=== PATIENT | male | born 1975 | race Caucasian/White ===

== ENCOUNTER 2017-10-12 14:31 | Inpatient (IN) | payer OTHER ==
[2017-10-12 18:23] VITALS: BMI 38.4
--- NOTE | 2017-10-12 20:40 | HP ---
CIWA Score - CIWA Score Nausea/Vomitin Muscle Tremors: None Anxiety: 2 Agitation: 1-Slight > Activity Paroxysmal Sweats: No Perspiration Orientation: 1-Uncertain about Date Tacttile Disturbances: 2-Mild Itch/Numbness/Burn (right hand) Auditory Disturbances: 0-None Visual Disturbances: 2-Mild Sensitivity Headache: 3-Moderate CIWA-Ar Total Score: 13 Admission ROS BHS - HPI Chief Complaint: Benzo withdrawal symptoms Allergies/Adverse Reactions: Allergies Allergy/AdvReac Type Severity Reaction Status Date / Time turkey Allergy Severe Vomiting Verified 10/12/17 18:52 History of Present Illness: 41 yo male with hx of xanax / klonopin dependence is here seeking detox. Patient currently attend out patient [facility] at [place], currently on methadone 170 mg , last medicated 10/12/17. PMHX: obesity, bypass surgery, anxiety, insomnia. Denies suicidal / homicidal ideation, or suicide attempts. Reports hx seizures realted benzo use, last seizure 3 years ago. Reports hx of blackout, last episode last week. Reports plan to attend 28 day rehab program. Last detox , September 2016 at [facility]. Longest period of sobriety 5 years. Exam Limitations: No Limitations - Ebola screening Have you traveled outside of the country in the last 21 days: No Have you had contact with anyone from an Ebola affected area: No Have you been sick,other than usual withdrawal symptoms: No Do you have a fever: No - Review of Systems Constitutional: Changes in sleep, Weakness, Weight Stable EENT: reports: Double Vision (ocassionally) Respiratory: reports: No Symptoms reported Cardiac: reports: Syncope (about a week ago) GI: reports: Poor Fluid Intake, Vomiting : reports: No Symptoms Reported Musculoskeletal: reports: Joint Pain (b/l knees), Muscle Pain (legs) Integumentary: reports: No Symptoms Reported Neuro: reports: See HPI, Headache, Numbness (right hand), Weakness Endocrine: reports: Increased Thirst Hematology: reports: Anemia Psychiatric: reports: Orientated x3, Depressed Other Systems: Reviewed and Negative Patient History - Patient Medical History Hx Anemia: Yes Hx Asthma: No Hx Chronic Obstructive Pulmonary Disease (COPD): No Hx Cancer: No Hx Cardiac Disorders: No Hx Congestive Heart Failure: No Hx Hypertension: No Hx Hypercholesterolemia: No Hx Pacemaker: No HX Cerebrovascular Accident: No Hx Seizures: No Hx Dementia: No Hx Diabetes: No Hx Gastrointestinal Disorders: No Hx Liver Disease: No Hx Genitourinary Disorders: No Hx Sexually Transmitted Disorders: No Hx Renal Disease (ESRD): No Hx Thyroid Disease: Yes (reports thyroid problem but unable to specify ) Hx Human Immunodeficiency Virus (HIV): No (last tested 5 months ago ) Hx Hepatitis C: No Hx Depression: Yes Hx Suicide Attempt: No Hx Schizophrenia: No - Patient Surgical History Past Surgical History: Yes Hx Neurologic Surgery: No Hx Cataract Extraction: No Hx Cardiac Surgery: No Hx Lung Surgery: No Hx Breast Surgery: No Hx Breast Biopsy: No Hx Abdominal Surgery: Yes (gastric by pass, extended panniculectomy ) Hx Appendectomy: No Hx Cholecystectomy: No Hx Genitourinary Surgery: No Hx Section: No Hx Orthopedic Surgery: No Anesthesia Reaction: No - PPD History Previous Implant?: Yes Documented Results: Negative w/o proof PPD to be Administered?: Yes - Reproductive History Patient is a Female of Child Bearing Age (11 -55 yrs old): No - Smoking Cessation Smoking history: Former smoker (reports currenlty vapes with nicotine free / flavored smoke) Have you smoked in the past 12 months: No Hx Chewing Tobacco Use: No Initiated information on smoking cessation: No - Substance & Tx. History Hx Alcohol Use: No Hx Substance Use: Yes Substance Use Type: Tranquilizers - Substances Abused Alprazolam (Xanax) Route: Oral Frequency: Daily Amount used: 10mg Age of first use: 40 Date of Last Use: 10/12/17 Benzodiazepine (Klonopin) Route: Oral Frequency: Daily Amount used: 14mg Age of first use: 40 Date of Last Use: 10/12/17 Family Disease History - Family Disease History Family Disease History: Heart Disease: Father (, [place] ), [place]: Mother ( , cancer lympth nodes ), Other: Father, Mother Admission Physical Exam BHS - Vital Signs Vital Signs: Vital Signs - 24 hr 10/12/17 18:22 Temperature 96.5 F L Pulse Rate 55 L Respiratory 18 Rate Blood Pressure 125/69 - Physical General Appearance: Yes: Appropriately Dressed, Obese, Anxious HEENTM: Yes: Hearing grossly Normal, Normal ENT Inspection, Normocephalic, Normal Voice, Pharynx Normal, Tm's normal, Other (chapped lips, dry mucous membranes) Respiratory: Yes: Chest Non-Tender, Lungs Clear, Normal Breath Sounds, No Respiratory Distress, No Accessory Muscle Use Neck: Yes: No masses,lesions,Nodules, Trachea in good position Breast: Yes: Breast Exam Deferred Cardiology: Yes: Regular Rhythm, Regular Rate Abdominal: Yes: Normal Bowel Sounds, Non Tender, Soft, Protuberent Genitourinary: Yes: Within Normal Limits Back: Yes: Normal Inspection Musculoskeletal: Yes: full range of Motion, Gait Steady Extremities: Yes: Normal Capillary Refill, Normal Inspection, Normal Range of Motion, Non-Tender Neurological: Yes: electronics repair technician II-XII NML intact, Fully Oriented, Alert, Motor Strength 5/5, Depressed Affect Integumentary: Yes: Normal Color, Dry, Warm Lymphatic: Yes: Within Normal Limits - Diagnostic (1) Sedative, hypnotic or anxiolytic dependence with withdrawal, uncomplicated Current Visit: Yes Status: Acute (2) Obese Current Visit: Yes Status: Acute (3) Methadone maintenance therapy patient Current Visit: Yes Status: Acute Comment: Currently on 170 MG, pending verification (4) Depressed mood Current Visit: Yes Status: Acute (5) Dehydration Current Visit: Yes Status: Acute (6) Insomnia Current Visit: Yes Status: Suspected Qualifiers: Insomnia type: unspecified Qualified Code(s): G47.00 - Insomnia, unspecified Cleared for Admission [facility] - Detox or Rehab [facility] Level of Care: Medically Managed Detox Regimen/Protocol: Valium [facility] Breath Alcohol Content Breath Alcohol Content: 0 Urine Drug Screen - Results Drug Screen Negative: No Urine Drug Screen Results: BZO-Benzodiazepines, MTD-Methadone
[2017-10-12] MEDS ORDERED: MAGNESIUM HYDROX 2400MG/30ML ORAL SUSPENSION 30 ML CUP PO PRN (20:50)
[2017-10-12] MEDS ORDERED: ACETAMINOPHEN 325 MG TABLET (FP) PO PRN (20:50)
[2017-10-12] MEDS ORDERED: diazePAM 5 MG TABLET PO ONE (20:50)
[2017-10-12] MEDS ORDERED: IBUPROFEN 400 MG TABLET (FP) PO PRN (20:50)
[2017-10-12] MEDS ORDERED: MAG HYDROX/AL HYDROX/SIMETH 30 ML UNIT-DOSE CUP PO PRN (20:50)
[2017-10-12] MEDS ORDERED: P-EPHED 60MG/TRIPROLIDI 2.5MG TABLET PO PRN (20:50)
[2017-10-12] MEDS ORDERED: MENTHOL/PHENOL 1 EACH UD MM PRN (20:50)
[2017-10-12] MEDS ORDERED: LOPERAMIDE HCL 2 MG CAPSULE PO PRN (20:50)
[2017-10-12] MEDS ORDERED: MAGNESIUM CITRATE 300 ML BOTTLE PO PRN (20:50)
[2017-10-12] MEDS ORDERED: guaiFENesin/D-METHORPHAN HB 10 ML UNIT-DOSE CUPS PO PRN (20:50)
[2017-10-12] MEDS: MELATONIN 5 MG TABLETS PO SCH (22:08)
[2017-10-12] MEDS: THIAMINE HCL 100 MG TABLET (FP) PO SCH (22:08)
[2017-10-12] MEDS: diazePAM 5 MG TABLET PO SCH (22:40)
[2017-10-13 03:30] LABS: URINE APPEARANCE CLEAR; URINE BILIRUBIN NEGATIVE (NEGATIVE); URINE BLOOD NEGATIVE (NEGATIVE); URINE COLOR YELLOW; URINE GLUCOSE (UA) NEGATIVE (NEGATIVE); URINE KETONE NEGATIVE (NEGATIVE); URINE LEUK ESTERASE TRACE (NEGATIVE); URINE NITRITE NEGATIVE (NEGATIVE); URINE PROTEIN NEGATIVE (NEGATIVE); URINE UROBILINOGEN NEGATIVE mg/dL (0.2-1.0)
[2017-10-13 03:34] LABS: EPI CELLS RARE /HPF (FEW); URINE MUCUS RARE
[2017-10-13] MEDS: diazePAM 5 MG TABLET PO SCH ×3 (05:59→22:43)
[2017-10-13] MEDS ORDERED: METHADONE HCL 10 MG TABLET PO ONE (08:41)
[2017-10-13 10:01] LABS: HEMATOCRIT 33.1 % (35.4-49); HEMOGLOBIN 10.8 GM/dL (11.7-16.9); MCH 28.2 pg (25.7-33.7); MCHC 32.7 g/dl (32.0-35.9); MEAN CELL VOLUME 86.3 fl (80-96); MEAN PLT VOLUME 9.5 fl (7.5-11.1); PLATELET COUNT 239 K/MM3 (134-434); RBC 3.84 M/mm3 (4.00-5.60); RDW 14.5 % (11.9-15.9)
--- NOTE | 2017-10-13 10:02 | EKG ---
Test Reason : Blood Pressure : / mmHG Vent. Rate : 053 BPM Atrial Rate : 053 BPM P-R Int : 198 ms QRS Dur : 094 ms QT Int : 474 ms P-R-T Axes : 048 054 038 degrees QTc Int : 444 ms SINUS BRADYCARDIA CANNOT RULE OUT POSTERIOR INFARCT , AGE UNDETERMINED ABNORMAL ECG NO PREVIOUS ECGS AVAILABLE Confirmed by GAMAL KIRK MD ([id number]) on 10/13/2017 10:02:54 AM Referred By: Confirmed By:GAMAL KIRK MD
[2017-10-13 10:14] LABS: ANION GAP 15 (8-16); BLOOD UREA NITROGEN 14 mg/dL (7-18); CHLORIDE 108 mmol/L (98-107); CO2 20 mmol/L (21-32); CREATININE 0.6 mg/dL (0.7-1.3); GLUCOSE,RANDOM 79 mg/dL (74-106); POTASSIUM 4.2 mmol/L (3.5-5.1); SGOT/AST 12 U/L (15-37); SGPT/ALT 9 U/L (12-78); SODIUM 143 mmol/L (136-145)
[2017-10-13 10:19] LABS: ALK PHOS 84 U/L (45-117); BILIRUBIN,TOTAL 0.3 mg/dL (0.2-1.0); CALCIUM 8.6 mg/dL (8.5-10.1); TOT PROT 6.4 g/dl (6.4-8.2)
[2017-10-13] MEDS ORDERED: METHADONE HCL 10 MG TABLET ONE (10:23)
[2017-10-13] MEDS ORDERED: METHADONE HCL 40 MG DISPERSABLE TABLET ONE (10:24)
[2017-10-13] MEDS ORDERED: METHADONE 160 MG, METHADONE 10 MG PO ONE (10:30)
[2017-10-13] MEDS: PRENATAL VITAMINS W/ FOLIC ACID TABLET (FP) PO SCH (10:35)
[2017-10-13] MEDS: diazePAM 5 MG TABLET PO PRN ×2 (10:35→15:17)
--- NOTE | 2017-10-13 11:22 | PN ---
[facility] CIWA - CIWA Score Nausea/Vomitin-No Nausea/No Vomiting Muscle Tremors: 4-Moderate,w/Arms Extend Anxiety: 5 Agitation: 4-Moderately Restless Paroxysmal Sweats: 1-Minimal Palms Moist Orientation: 0-Oriented Tacttile Disturbances: 3-Moderate Itch/Numb/Burn (BODY ACHES) Auditory Disturbances: 0-None Visual Disturbances: 0-None Headache: 0-None Present CIWA-Ar Total Score: 17 BHS Progress Note (SOAP) Subjective: ANXIETY,SWEATS/CHILLS,BODYACHES,IRRITABILITY. Objective: 10/13/17 11:21 Vital Signs Temperature 97.7 F 10/13/17 10:19 Pulse Rate 53 L 10/13/17 10:19 Respiratory Rate 18 10/13/17 10:19 Blood Pressure 113/75 10/13/17 10:19 O2 Sat by Pulse Oximetry (%) Laboratory Last Values WBC 6.0 K/mm3 (4.0-10.0) 10/13/17 07:00 RBC 3.84 M/mm3 (4.00-5.60) L 10/13/17 07:00 Hgb 10.8 GM/dL (11.7-16.9) L 10/13/17 07:00 Hct 33.1 % (35.4-49) L 10/13/17 07:00 MCV 86.3 fl (80-96) 10/13/17 07:00 MCH 28.2 pg (25.7-33.7) 10/13/17 07:00 MCHC 32.7 g/dl (32.0-35.9) 10/13/17 07:00 RDW 14.5 % (11.9-15.9) 10/13/17 07:00 Plt Count 239 K/MM3 (134-434) 10/13/17 07:00 MPV 9.5 fl (7.5-11.1) 10/13/17 07:00 Sodium 143 mmol/L (136-145) 10/13/17 07:00 Potassium 4.2 mmol/L (3.5-5.1) 10/13/17 07:00 Chloride 108 mmol/L (98-107) H 10/13/17 07:00 Carbon Dioxide 20 mmol/L (21-32) L 03/23/18 07:00 Anion Gap 15 (8-16) 10/13/17 07:00 BUN 14 mg/dL (7-18) 10/13/17 07:00 Creatinine 0.6 mg/dL (0.7-1.3) L 10/13/17 07:00 Creat Clearance w eGFR > 60 (>60) 10/13/17 07:00 Random Glucose 79 mg/dL (74-106) 10/13/17 07:00 Calcium 8.6 mg/dL (8.5-10.1) 10/13/17 07:00 Total Bilirubin 0.3 mg/dL (0.2-1.0) 10/13/17 07:00 AST 12 U/L (15-37) L 10/13/17 07:00 ALT 9 U/L (12-78) L 10/13/17 07:00 Alkaline Phosphatase 84 U/L (45-117) 10/13/17 07:00 Total Protein 6.4 g/dl (6.4-8.2) 10/13/17 07:00 Albumin 3.0 g/dl (3.4-5.0) L 10/13/17 07:00 Urine Color Yellow 10/12/17 21:53 Urine Appearance Clear 10/12/17 21:53 Urine pH 5.0 (5.0-8.0) 10/12/17 21:53 Ur Specific [place] 1.026 (1.001-1.035) 10/12/17 21:53 Urine Protein Negative (NEGATIVE) 10/12/17 21:53 Urine Glucose (UA) Negative (NEGATIVE) 10/12/17 21:53 Urine Ketones Negative (NEGATIVE) 10/12/17 21:53 Urine Blood Negative (NEGATIVE) 10/12/17 21:53 Urine Nitrite Negative (NEGATIVE) 10/12/17 21:53 Urine Bilirubin Negative (NEGATIVE) 10/12/17 21:53 Urine Urobilinogen Negative mg/dL (0.2-1.0) 10/12/17 21:53 Ur Leukocyte Esterase Trace (NEGATIVE) 10/12/17 21:53 Urine WBC (Auto) 1 /hpf (3-5) 10/12/17 21:53 Urine RBC (Auto) <1 /hpf (0-3) 10/12/17 21:53 Ur Epithelial Cells Rare /HPF (FEW) 10/12/17 21:53 Urine Mucus Rare 10/12/17 21:53 Assessment: 10/13/17 11:21 WITHDRAWAL SX Plan: CONTINUE DETOX MOTRIN PRN INCREASE PO FLUIDS
--- NOTE | 2017-10-13 12:12 | CONSULT ---
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 Substance Abuse History: Discussed with the patient.Mr Reilly admits to using xanax and klonopin (not prescribed) for past 12 months (10 mg of xanax + 12 mg of klonopin daiy). More details in current [facility] report : Smoking history: Former smoker (reports currenlty vapes with nicotine free / flavored smoke). Have you smoked in the past 12 months: No. Hx Chewing Tobacco Use: No. Initiated information on smoking cessation: No. - Substance & Tx. History. Hx Alcohol Use: No. Hx Substance Use: Yes. Substance Use Type: Tranquilizers. - Substances Abused. Alprazolam (Xanax). Route: Oral. Frequency: Daily. Amount used: 10mg. Age of first use: 40. Date of Last Use: 10/12/17. Benzodiazepine (Klonopin). Route: Oral. Frequency: Daily. Amount used: 14mg. Age of first use: 40. Date of Last Use: 10/12/17 Medical History: Obesity,anemia,thyroid disease (questionable) and a history of gastric bypass. Psychiatric History: Patient denies history of psychiatric hospitalizations.Diagnosed with Anxiety Disorder and prescribed gabapentin 2400 mg/day.Mr Reilly is currently on methadone maintenance (170 mg/day) at the [facility] program in [facility].Denies history of suicide attempts. Physical/Sexual Abuse/Trauma History: Patient denies. Additional Comment: Urine Drug Screen Results: BZO-Benzodiazepines, MTD- Methadone.Noted. Mental Status Exam - Mental Status Exam Alert and Oriented to: Time, Place, Person Cognitive Function: Good Patient Appearance: Well Groomed (tattoos over arms + forearms) Mood: Nervous, Withdrawn, Anxious Affect: Mood Congruent Patient Behavior: Fatigued, Cooperative Speech Pattern: Clear, Appropriate Voice Loudness: Normal Thought Process: Goal Oriented Hallucinations: Denies Suicidal Ideation: Denies Homicidal Ideation: Denies Insight/Judgement: Poor Sleep: Poorly, Difficulty falling asleep Appetite: Good Muscle strength/Tone: Normal Gait/Station: Normal Psychiatric Findings - Problem List ([place] 1, 2,3) (1) Opioid dependence on agonist therapy Current Visit: Yes Status: Acute (2) Sedative, hypnotic or anxiolytic dependence with withdrawal, uncomplicated Current Visit: Yes Status: Acute (3) Substance induced mood disorder Current Visit: Yes Status: Acute (4) Insomnia Current Visit: Yes Status: Acute Qualifiers: Insomnia type: unspecified Qualified Code(s): G47.00 - Insomnia, unspecified - Initial Treatment Plan Initial Treatment Plan: Psychoeducation.Sleep hygiene.Detoxification in progress.Patient is encouraged to attend groups and recreational activities.Medications : gabapentin 400 mg po tid (reduced).Side effects/ benefits discussed with the patient.Mr Reilly has expressed his agreement to this careplan.Observation.
[2017-10-13] MEDS ORDERED: FERROUS SO4 325 MG TABLET (FP) PO ONE (12:45)
[2017-10-13] MEDS: GABAPENTIN 400 MG CAPSULE (FP) PO SCH ×2 (13:18→22:43)
[2017-10-13] MEDS: FERROUS SO4 325 MG TABLET (FP) PO SCH (17:25)
[2017-10-13] MEDS: hydrOXYzine PAMOATE 50 MG CAPSULE (FP) PO PRN (17:27)
[2017-10-13] MEDS: THIAMINE HCL 100 MG TABLET (FP) PO SCH (22:42)
[2017-10-13] MEDS: MELATONIN 5 MG TABLETS PO SCH (22:42)
[2017-10-14] MEDS ORDERED: METHADONE HCL 40 MG DISPERSABLE TABLET ONE (05:25)
[2017-10-14] MEDS ORDERED: METHADONE HCL 10 MG TABLET ONE (05:25)
[2017-10-14] MEDS: METHADONE 160 MG, METHADONE 10 MG PO SCH (05:44)
[2017-10-14] MEDS: GABAPENTIN 400 MG CAPSULE (FP) PO SCH ×3 (05:44→22:11)
[2017-10-14] MEDS ORDERED: METHADONE HCL 10 MG TABLET PO SCH (06:00)
[2017-10-14] MEDS: FERROUS SO4 325 MG TABLET (FP) PO SCH ×2 (07:56→17:09)
[2017-10-14] MEDS: diazePAM 5 MG TABLET PO PRN ×3 (08:45→17:12)
[2017-10-14] MEDS: PRENATAL VITAMINS W/ FOLIC ACID TABLET (FP) PO SCH (10:19)
[2017-10-14] MEDS: diazePAM 5 MG TABLET PO SCH ×2 (10:19→22:11)
--- NOTE | 2017-10-14 15:31 | PN ---
[facility] CIWA - CIWA Score Nausea/Vomitin-No Nausea/No Vomiting Muscle Tremors: 3 Anxiety: 4-Mod. Anxious/Guarded Agitation: 3 Paroxysmal Sweats: 3 Orientation: 0-Oriented Tacttile Disturbances: 2-Mild Itch/Numbness/Burn Auditory Disturbances: 0-None Visual Disturbances: 0-None Headache: 0-None Present CIWA-Ar Total Score: 15 BHS Progress Note (SOAP) Subjective: Anxious, Interrupted sleep, Fatigue, Sweating. Objective: PATIENT A & O X 3, OBSERVED AMBULATING ON UNIT. NO ACUTE DISTRESS. 10/14/17 15:29 Vital Signs Temperature 97.2 F L 10/14/17 13:31 Pulse Rate 55 L 10/14/17 13:31 Respiratory Rate 18 10/14/17 13:31 Blood Pressure 94/53 10/14/17 13:31 O2 Sat by Pulse Oximetry (%) Laboratory Tests 10/12/17 10/13/17 10/13/17 21:53 07:00 07:00 WBC 6.0 RBC 3.84 L Hgb 10.8 L Hct 33.1 L MCV 86.3 MCH 28.2 MCHC 32.7 RDW 14.5 Plt Count 239 MPV 9.5 Sodium 143 Potassium 4.2 Chloride 108 H Carbon Dioxide 20 L Anion Gap 15 BUN 14 Creatinine 0.6 L Creat Clearance w eGFR > 60 Random Glucose 79 Calcium 8.6 Total Bilirubin 0.3 AST 12 L ALT 9 L Alkaline Phosphatase 84 Total Protein 6.4 Albumin 3.0 L Urine Color Yellow Urine Appearance Clear Urine pH 5.0 Ur Specific [place] 1.026 Urine Protein Negative Urine Glucose (UA) Negative Urine Ketones Negative Urine Blood Negative Urine Nitrite Negative Urine Bilirubin Negative Urine Urobilinogen Negative Ur Leukocyte Esterase Trace Urine WBC (Auto) 1 Urine RBC (Auto) <1 Ur Epithelial Cells Rare Urine Mucus Rare RPR Titer 10/13/17 07:00 WBC RBC Hgb Hct MCV MCH MCHC RDW Plt Count MPV Sodium Potassium Chloride Carbon Dioxide Anion Gap BUN Creatinine Creat Clearance w eGFR Random Glucose Calcium Total Bilirubin AST ALT Alkaline Phosphatase Total Protein Albumin Urine Color Urine Appearance Urine pH Ur Specific [place] Urine Protein Urine Glucose (UA) Urine Ketones Urine Blood Urine Nitrite Urine Bilirubin Urine Urobilinogen Ur Leukocyte Esterase Urine WBC (Auto) Urine RBC (Auto) Ur Epithelial Cells Urine Mucus RPR Titer Nonreactive LABS NOTED. Assessment: 10/14/17 15:29 WITHDRAWAL SYMPTOMS. Plan: CONTINUE DETOX. INCREASE DAILY PO FLUID INTAKE.
[2017-10-14 21:41] LABS: URINE APPEARANCE CLEAR; URINE BILIRUBIN NEGATIVE (<2.0 mg/dL); URINE BLOOD NEGATIVE (NEGATIVE); URINE COLOR LTYELLOW; URINE GLUCOSE (UA) NEGATIVE (NEGATIVE); URINE KETONE NEGATIVE (NEGATIVE); URINE LEUK ESTERASE TRACE (NEGATIVE); URINE NITRITE NEGATIVE (NEGATIVE); URINE PROTEIN NEGATIVE (NEGATIVE); URINE UROBILINOGEN NEGATIVE mg/dL (0.2-1.0)
[2017-10-14 21:45] LABS: EPI CELLS RARE /HPF (FEW); URINE BACTERIA RARE /hpf (NONE SEEN); URINE MUCUS RARE
[2017-10-14] MEDS: THIAMINE HCL 100 MG TABLET (FP) PO SCH (22:11)
[2017-10-14] MEDS: MELATONIN 5 MG TABLETS PO SCH (22:11)
[2017-10-15] MEDS ORDERED: METHADONE HCL 10 MG TABLET ONE (03:30)
[2017-10-15] MEDS ORDERED: METHADONE HCL 40 MG DISPERSABLE TABLET ONE (03:30)
[2017-10-15] MEDS: GABAPENTIN 400 MG CAPSULE (FP) PO SCH ×3 (05:39→22:18)
[2017-10-15] MEDS: METHADONE 160 MG, METHADONE 10 MG PO SCH (05:39)
[2017-10-15] MEDS: FERROUS SO4 325 MG TABLET (FP) PO SCH ×2 (07:32→17:24)
[2017-10-15] MEDS: diazePAM 5 MG TABLET PO PRN ×3 (08:42→17:24)
[2017-10-15] MEDS: PRENATAL VITAMINS W/ FOLIC ACID TABLET (FP) PO SCH (10:19)
[2017-10-15] MEDS: diazePAM 5 MG TABLET PO SCH ×2 (10:20→22:18)
[2017-10-15] MEDS: hydrOXYzine PAMOATE 50 MG CAPSULE (FP) PO PRN (10:21)
--- NOTE | 2017-10-15 10:36 | PN ---
[facility] Progress Note Note: Patient requests to have Gabapentin dosage increased to 800 mg po TID as he was taking it previous to current admission
--- NOTE | 2017-10-15 12:22 | PN ---
BHS Progress Note (SOAP) Subjective: Chills, tremor, dry itchy throat, slight blurry vision, interrupted sleep Objective: 10/15/17 12:20 Last Vital Signs Temp Pulse Resp BP Pulse Ox 97.2 F L 48 L 18 107/64 10/15/17 09:11 10/15/17 09:11 10/15/17 09:11 10/15/17 09:11 Laboratory Tests 10/12/17 10/13/17 10/13/17 21:53 07:00 07:00 WBC 6.0 RBC 3.84 L Hgb 10.8 L Hct 33.1 L MCV 86.3 MCH 28.2 MCHC 32.7 RDW 14.5 Plt Count 239 MPV 9.5 Sodium 143 Potassium 4.2 Chloride 108 H Carbon Dioxide 20 L Anion Gap 15 BUN 14 Creatinine 0.6 L Creat Clearance w eGFR > 60 Random Glucose 79 Calcium 8.6 Total Bilirubin 0.3 AST 12 L ALT 9 L Alkaline Phosphatase 84 Total Protein 6.4 Albumin 3.0 L Urine Color Yellow Urine Appearance Clear Urine pH 5.0 Ur Specific [place] 1.026 Urine Protein Negative Urine Glucose (UA) Negative Urine Ketones Negative Urine Blood Negative Urine Nitrite Negative Urine Bilirubin Negative Urine Urobilinogen Negative Ur Leukocyte Esterase Trace Urine WBC (Auto) 1 Urine RBC (Auto) <1 Ur Epithelial Cells Rare Urine Bacteria Urine Mucus Rare RPR Titer 10/13/17 10/14/17 07:00 09:23 WBC RBC Hgb Hct MCV MCH MCHC RDW Plt Count MPV Sodium Potassium Chloride Carbon Dioxide Anion Gap BUN Creatinine Creat Clearance w eGFR Random Glucose Calcium Total Bilirubin AST ALT Alkaline Phosphatase Total Protein Albumin Urine Color Ltyellow Urine Appearance Clear Urine pH 5.0 Ur Specific [place] 1.009 Urine Protein Negative Urine Glucose (UA) Negative Urine Ketones Negative Urine Blood Negative Urine Nitrite Negative Urine Bilirubin Negative Urine Urobilinogen Negative Ur Leukocyte Esterase Trace Urine WBC (Auto) 1 Urine RBC (Auto) None Ur Epithelial Cells Rare Urine Bacteria Rare Urine Mucus Rare RPR Titer Nonreactive Labs noted Assessment: 10/15/17 12:21 Withdrawal symptoms Plan: Continue detox Noted with bradycardia: encouraged to drink lots of water for hydration Allergic rhinitis: claritin 10mg PO daily
[2017-10-15] MEDS: MELATONIN 5 MG TABLETS PO SCH (22:18)
[2017-10-15] MEDS: THIAMINE HCL 100 MG TABLET (FP) PO SCH (22:18)
[2017-10-16] MEDS ORDERED: METHADONE HCL 10 MG TABLET ONE (03:32)
[2017-10-16] MEDS ORDERED: METHADONE HCL 40 MG DISPERSABLE TABLET ONE (03:32)
[2017-10-16] MEDS: METHADONE 160 MG, METHADONE 10 MG PO SCH (05:35)
[2017-10-16] MEDS: GABAPENTIN 400 MG CAPSULE (FP) PO SCH (05:35)
[2017-10-16] MEDS: FERROUS SO4 325 MG TABLET (FP) PO SCH (08:01)
[2017-10-16 09:18] VITALS: BP 114/71; PULSE 48; TEMP 98.1
[2017-10-16] MEDS ORDERED: LORATADINE 10 MG TABLET PO SCH (10:00)
[2017-10-16] MEDS ORDERED: diazePAM 5 MG TABLET PO SCH (10:00)
--- NOTE | 2017-10-16 13:25 | PN ---
BHS Progress Note (SOAP) Subjective: Patient denies any current Detox symptoms and reports that he feels well overall. Objective: PATIENT A & O X 3, OBSERVED AMBULATING ON UNIT. NO ACUTE DISTRESS. 10/16/17 13:24 Vital Signs Temperature 98.1 F 10/16/17 09:17 Pulse Rate 48 L 10/16/17 09:17 Respiratory Rate 18 10/16/17 09:17 Blood Pressure 114/71 10/16/17 09:17 O2 Sat by Pulse Oximetry (%) Laboratory Tests 10/12/17 10/13/17 10/13/17 21:53 07:00 07:00 WBC 6.0 RBC 3.84 L Hgb 10.8 L Hct 33.1 L MCV 86.3 MCH 28.2 MCHC 32.7 RDW 14.5 Plt Count 239 MPV 9.5 Sodium 143 Potassium 4.2 Chloride 108 H Carbon Dioxide 20 L Anion Gap 15 BUN 14 Creatinine 0.6 L Creat Clearance w eGFR > 60 Random Glucose 79 Calcium 8.6 Total Bilirubin 0.3 AST 12 L ALT 9 L Alkaline Phosphatase 84 Total Protein 6.4 Albumin 3.0 L Urine Color Yellow Urine Appearance Clear Urine pH 5.0 Ur Specific [place] 1.026 Urine Protein Negative Urine Glucose (UA) Negative Urine Ketones Negative Urine Blood Negative Urine Nitrite Negative Urine Bilirubin Negative Urine Urobilinogen Negative Ur Leukocyte Esterase Trace Urine WBC (Auto) 1 Urine RBC (Auto) <1 Ur Epithelial Cells Rare Urine Bacteria Urine Mucus Rare RPR Titer 10/13/17 10/14/17 07:00 09:23 WBC RBC Hgb Hct MCV MCH MCHC RDW Plt Count MPV Sodium Potassium Chloride Carbon Dioxide Anion Gap BUN Creatinine Creat Clearance w eGFR Random Glucose Calcium Total Bilirubin AST ALT Alkaline Phosphatase Total Protein Albumin Urine Color Ltyellow Urine Appearance Clear Urine pH 5.0 Ur Specific [place] 1.009 Urine Protein Negative Urine Glucose (UA) Negative Urine Ketones Negative Urine Blood Negative Urine Nitrite Negative Urine Bilirubin Negative Urine Urobilinogen Negative Ur Leukocyte Esterase Trace Urine WBC (Auto) 1 Urine RBC (Auto) None Ur Epithelial Cells Rare Urine Bacteria Rare Urine Mucus Rare RPR Titer Nonreactive LABS NOTED. Assessment: 10/16/17 13:24 COMPLETION OF DETOX REGIMEN. Plan: PATIENT SCHEDULED FOR DISCHARGE FROM DETOX UNIT TODAY.
--- NOTE | 2017-10-16 13:29 | DS ---
[facility] Detox Discharge Summary Admission Date: 10/12/17 Discharge Date: 10/16/17 - History Present History: Opioid Dependence, Sedative Dependence, MMTP Additional Comments: PATIENT RETURNING TO [facility] OUTPATIENT / MMTP PROGRAM ([place] , [place] FOR AFTERCARE. PATIENT WAS DISCHARGED FROM DETOX UNIT IN STABLE MEDICAL CONDITION. Pertinent Past History: History of Anemia, Depression, MMTP, Dehydration, Insomnia. - Physical Exam Results Vital Signs: Vital Signs Temperature 98.1 F 10/16/17 09:17 Pulse Rate 48 L 10/16/17 09:17 Respiratory Rate 18 10/16/17 09:17 Blood Pressure 114/71 10/16/17 09:17 O2 Sat by Pulse Oximetry (%) Pertinent Admission Physical Exam Findings: WITHDRAWAL SYMPTOMS. Laboratory Tests 10/12/17 10/13/17 10/13/17 21:53 07:00 07:00 WBC 6.0 RBC 3.84 L Hgb 10.8 L Hct 33.1 L MCV 86.3 MCH 28.2 MCHC 32.7 RDW 14.5 Plt Count 239 MPV 9.5 Sodium 143 Potassium 4.2 Chloride 108 H Carbon Dioxide 20 L Anion Gap 15 BUN 14 Creatinine 0.6 L Creat Clearance w eGFR > 60 Random Glucose 79 Calcium 8.6 Total Bilirubin 0.3 AST 12 L ALT 9 L Alkaline Phosphatase 84 Total Protein 6.4 Albumin 3.0 L Urine Color Yellow Urine Appearance Clear Urine pH 5.0 Ur Specific [place] 1.026 Urine Protein Negative Urine Glucose (UA) Negative Urine Ketones Negative Urine Blood Negative Urine Nitrite Negative Urine Bilirubin Negative Urine Urobilinogen Negative Ur Leukocyte Esterase Trace Urine WBC (Auto) 1 Urine RBC (Auto) <1 Ur Epithelial Cells Rare Urine Bacteria Urine Mucus Rare RPR Titer 10/13/17 10/14/17 07:00 09:23 WBC RBC Hgb Hct MCV MCH MCHC RDW Plt Count MPV Sodium Potassium Chloride Carbon Dioxide Anion Gap BUN Creatinine Creat Clearance w eGFR Random Glucose Calcium Total Bilirubin AST ALT Alkaline Phosphatase Total Protein Albumin Urine Color Ltyellow Urine Appearance Clear Urine pH 5.0 Ur Specific [place] 1.009 Urine Protein Negative Urine Glucose (UA) Negative Urine Ketones Negative Urine Blood Negative Urine Nitrite Negative Urine Bilirubin Negative Urine Urobilinogen Negative Ur Leukocyte Esterase Trace Urine WBC (Auto) 1 Urine RBC (Auto) None Ur Epithelial Cells Rare Urine Bacteria Rare Urine Mucus Rare RPR Titer Nonreactive LABS NOTED. - Treatment Hospital Course: Detox Protocol Followed, Detoxed Safely, Responded well, Discharged Condition Good Patient has Accepted a Rehab Referral to: PT RETURNING TO [facility] OP / MMTP PROGRAM ([place], [place]). - Medication Discharge Medications: Ambulatory Orders Gabapentin [Neurontin -] 800 mg PO TID 10/12/17 - Diagnosis (1) Dehydration Status: Acute (2) Depressed mood Status: Chronic (3) Sedative, hypnotic or anxiolytic dependence with withdrawal, uncomplicated Status: Acute (4) Methadone maintenance therapy patient Status: Chronic (5) Obese Status: Chronic Qualifiers: Obesity type: due to excess calories Obesity classification: unspecified obesity classification Serious obesity comorbidity presence: unspecified whether serious comorbidity present Qualified Code(s): E66.09 - Other obesity due to excess calories (6) Insomnia Status: Acute Qualifiers: Insomnia type: unspecified Qualified Code(s): G47.00 - Insomnia, unspecified (7) Opioid dependence on agonist therapy Status: Chronic (8) Substance induced mood disorder Status: Acute - AMA Did Patient Leave Against Medical Advice: No
== END 2017-10-16 10:50 | disposition home or self-care (01) | DRG 773 ==
LOC: YASAS 14:31 → Y3N 19:20
PROVIDERS: ADMIT Internal Medicine; ATTEND Internal Medicine
PROC: HZ2ZZZZ Detoxification Services for Substance Abuse Treatment (ICD-10-PCS; principal; 2017-10-12)
DX: F11.23 Opioid dependence with withdrawal (principal); F13.230 Sedative, hypnotic or anxiolytic dependence with withdrawal, uncomplicated; F19.24 Other psychoactive substance dependence with psychoactive substance-induced mood disorder; F32.9 Major depressive disorder, single episode, unspecified; G47.00 Insomnia, unspecified; E86.0 Dehydration; D64.9 Anemia, unspecified; E07.9 Disorder of thyroid, unspecified; E66.09 Other obesity due to excess calories; Z68.34 Body mass index [BMI] 34.0-34.9, adult
CPT/HCPCS: 36415; 80053; 81003; 81015; 85027; 86593; 93005; 93010